=== PATIENT | female | born 1960 | race Caucasian/White ===

== ENCOUNTER 2018-08-22 17:21 | Observation (INO) | payer BC ==
[2018-08-22] MEDS ORDERED: Sodium Chloride 0.9% 1,000 ML IV SCH (18:00)
[2018-08-22 18:40] LABS: ANION GAP 11.6 mmol/L (5-15); CHLORIDE,CL 103 mmol/L (98-115); SODIUM,NA 137 mmol/L (136-145)
--- NOTE | 2018-08-22 18:44 | CR ---
[id number] RAD/RAD Chest PA And Lateral EXAM: RAD Chest PA And Lateral CLINICAL DATA: WHEEZING. COUGH. COMPARISON: NO PREVIOUS SIMILAR EXAM IS AVAILABLE. FINDINGS: The lungs are clear. The cardiomediastinal contour is normal. The regional bones and soft tissues are unremarkable. IMPRESSION: NO ACUTE PROCESS. Alvaro Stiles MD 08/22/18 2522 Thank you for allowing us to participate in the care of your patient.
[2018-08-22] MEDS: Ketorolac 30 MG/ML SDV IVPUSH PRN (19:53)
[2018-08-22] MEDS: methylPREDNISolone Sodium Succinate 125 MG/2 ML SDV IVPUSH SCH (20:00)
[2018-08-22] MEDS: Ondansetron 4 MG/2 ML SDV IVPUSH PRN (20:07)
[2018-08-22] MEDS: Sodium Chloride 0.9% 10 ML Syringe FLUSH PRN (20:08)
[2018-08-22] MEDS: Sodium Chloride 0.9% 1,000 ML IV SCH (20:20)
[2018-08-22] MEDS ORDERED: atorvaSTATin 10 MG Tab PO SCH (21:00)
[2018-08-22] MEDS: Acetaminophen 325 MG Tab PO PRN (21:07)
[2018-08-22] MEDS: Nicotine 21 MG/24 Hr Patch TRDERM SCH (21:08)
[2018-08-22] MEDS: Albuterol/Ipratropium 3.0-0.5 MG/3 ML Neb Soln NEB SCH (21:22)
[2018-08-23] MEDS: Aluminum Hydroxide/Magnesium Hydroxide/Simethicone Susp 30 ML Cup PO PRN ×2 (02:14→13:11)
[2018-08-23] MEDS: Sodium Chloride 0.9% 1,000 ML IV SCH ×2 (03:03→10:58)
[2018-08-23] MEDS: methylPREDNISolone Sodium Succinate 125 MG/2 ML SDV IVPUSH SCH (06:20)
[2018-08-23] MEDS: Sodium Chloride 0.9% 10 ML Syringe FLUSH PRN ×2 (06:21→08:18)
[2018-08-23] MEDS: Acetaminophen 325 MG Tab PO PRN (06:25)
[2018-08-23] MEDS: Albuterol/Ipratropium 3.0-0.5 MG/3 ML Neb Soln NEB SCH ×2 (06:40→13:04)
[2018-08-23] MEDS ORDERED: Levothyroxine 75 MCG Tab PO SCH (07:30)
[2018-08-23] MEDS ORDERED: Levothyroxine 100 MCG Tab PO SCH (07:30)
[2018-08-23] MEDS: Nicotine 21 MG/24 Hr Patch TRDERM SCH (08:07)
[2018-08-23] MEDS: Ondansetron 4 MG/2 ML SDV IVPUSH PRN (08:17)
[2018-08-23] MEDS: Ketorolac 30 MG/ML SDV IVPUSH PRN (08:17)
--- NOTE | 2018-08-23 10:58 | PCM.PN ---
- General Info Date of Service: 08/23/18 Functional Status: Reports: Pain Controlled, Tolerating Diet, Urinating. Denies : Ambulating, New Symptoms - Review of Systems General: Reports: Night Sweats HEENT: Reports: Headaches Pulmonary: Reports: Cough. Denies: Shortness of Breath, Pleuritic Chest Pain, Sputum, Wheezing Cardiovascular: Reports: No Symptoms Gastrointestinal: Reports: Decreased Appetite, Nausea. Denies: Vomiting Genitourinary: Reports: No Symptoms Musculoskeletal: Reports: No Symptoms Skin: Reports: Dryness Neurological: Denies: Confusion Psychiatric: Reports: No Symptoms - Patient Data Vitals - Most Recent: Last Vital Signs Temp 99.6 F 08/23/18 06:27 Pulse 80 08/23/18 06:40 Resp 20 08/23/18 06:27 BP 117/64 08/23/18 06:27 Pulse Ox 97 08/23/18 06:40 Weight - Most Recent: 191 lb 12.8 oz I&O - Last 24 Hours: Intake & Output 08/22/18 08/23/18 08/23/18 22:59 06:59 14:59 Intake Total 211 1797 Output Total 200 Balance 11 1797 Lab Results Last 24 Hours: Laboratory Results - last 24 hr 08/22/18 08/22/18 08/22/18 Range/Units 18:10 18:10 20:45 WBC 9.67 (5.00-10.00) 10^3/uL RBC 5.13 (3.80-5.50) 10^6/uL Hgb 15.1 (12.0-16.0) g/dL Hct 43.9 (37.0-47.0) % MCV 85.6 (82.0-92.0) fL MCH 29.4 (27.0-31.0) pg MCHC 34.4 (32.0-36.0) g/dL RDW 13.5 (11.5-14.5) % Plt Count 252 (150-400) 10^3/uL MPV 10.9 H (7.4-10.4) fL Immature Gran % (Auto) 0.2 (0.0-5.0) % Neut % (Auto) 83.7 H (50.0-70.0) % Lymph % (Auto) 11.5 L (20.0-40.0) % [place] % (Auto) 4.1 (2.0-8.0) % Eos % (Auto) 0.2 L (1.0-3.0) % Baso % (Auto) 0.3 (0.0-1.0) % Immature Gran # (Auto) 0.02 (0.00-0.50) 10^3/uL Neut # (Auto) 8.09 H (2.50-7.00) 10^3/uL Lymph # (Auto) 1.11 (1.00-4.00) 10^3/uL [place] # (Auto) 0.40 (0.10-0.80) 10^3/uL Eos # (Auto) 0.02 L (0.10-0.30) 10^3/uL Baso # (Auto) 0.03 (0.00-0.10) 10^3/uL Sodium 137 (136-145) mmol/L Potassium 3.7 (3.3-5.3) mmol/L Chloride 103 (98-115) mmol/L Carbon Dioxide 26.1 (21.0-32.0) mmol/L Anion Gap 11.6 (5-15) mmol/L BUN 17 (6-25) mg/dL Creatinine 0.80 (0.51-1.17) mg/dL Est Cr Clr Drug Dosing 78.27 mL/min Estimated GFR (MDRD) > 60 mL/min Glucose 115 H (75 - 99) mg/dL Calcium 9.1 (8.7-10.3) mg/dL Specimen Type Urinvoid Urine Color Yellow (YELLOW) Urine Appearance Slightly cloudy H (CLEAR) Urine pH 6.5 (5.0-9.0) Ur Specific [place] 1.025 (1.005-1.030) Urine Protein Negative (NEGATIVE) mg/dL Urine Glucose (UA) Negative (NEGATIVE) mg/dL Urine Ketones 15 H (NEGATIVE) mg/dL Urine Occult Blood Negative (NEGATIVE) Urine Nitrite Negative (NEGATIVE) Urine Bilirubin Negative (NEGATIVE) Urine Urobilinogen 0.2 (0.2-1.0) E.U./dL Ur Leukocyte Esterase Negative (NEGATIVE) Urine RBC 0-5 (0-5) /HPF Urine WBC 5-10 H (0-5) /HPF Ur Epithelial Cells Few /LPF Urine Bacteria Few (NONE TO FEW) /HPF Med Orders - Current: Current Medications Acetaminophen (Tylenol) 650 mg PO Q4H PRN PRN Reason: Headache Last Admin: 08/23/18 06:25 Dose: 650 mg Al Hydroxide/Mg Hydroxide (Mag-Al Plus) 30 ml PO Q4H PRN PRN Reason: Heartburn Last Admin: 08/23/18 02:14 Dose: 30 ml Albuterol/Ipratropium (Duoneb 3.0-0.5 Mg/3 Ml) 3 ml NEB Q8HRRT [facility] Last Admin: 08/23/18 06:40 Dose: 3 ml Atorvastatin Calcium (Lipitor) 10 mg PO BEDTIME [facility] Last Admin: 08/22/18 21:22 Dose: 10 mg Sodium Chloride (Normal Saline) 1,000 mls @ 150 mls/hr IV ASDIRECTED [facility] Last Admin: 08/23/18 03:03 Dose: 150 mls/hr Ketorolac Tromethamine (Toradol) 30 mg IVPUSH Q6H PRN PRN Reason: Headache Stop: 08/27/18 18:21 Last Admin: 08/23/18 08:17 Dose: 30 mg Levothyroxine Sodium (Synthroid) 100 mcg PO ACBREAKFAST [facility] Last Admin: 08/23/18 08:07 Dose: 100 mcg Levothyroxine Sodium (Levothyroxine) 75 mcg PO ACBREAKFAST [facility] Last Admin: 08/23/18 08:07 Dose: 75 mcg Methylprednisolone Sodium Succinate (Solu-Medrol) 40 mg IVPUSH Q12H [facility] Last Admin: 08/23/18 06:20 Dose: 40 mg Nicotine (Habitrol) 21 mg TRDERM DAILY [facility] Last Admin: 08/23/18 08:07 Dose: 21 mg Ondansetron HCl (Zofran) 8 mg IVPUSH Q8H PRN PRN Reason: Nausea/Vomiting Last Admin: 08/23/18 08:17 Dose: 8 mg Sodium Chloride (Saline Flush) 10 ml FLUSH Q8HR PRN PRN Reason: keep vein open Last Admin: 08/23/18 08:18 Dose: 10 ml Discontinued Medications Sodium Chloride (Normal Saline) 1,000 mls @ 100 mls/hr IV ASDIRECTED [facility] - Exam Quality Assessment: No: Supplemental Oxygen General: Alert, Oriented, Cooperative Neck: Supple, No JVD Lungs: Clear to Auscultation, Normal Respiratory Effort Cardiovascular: Regular Rate, Regular Rhythm GI/Abdominal Exam: Soft. No: Distended Back Exam: No: CVA Tenderness (L), CVA Tenderness (R) Extremities: No Pedal Edema Peripheral Pulses: 2+: Radial (R), Femoral (L) Neurological: Normal Speech, Sensation Intact, Cranial Nerves Intact Psy/Mental Status: Alert, Normal Affect, Normal Mood - Problem List Review Problem List Initiated/Reviewed/Updated: Yes - Plan Plan:: History summary Ms Avila, is a 58-year-old female that was admitted into OBS status by Abigail CORREA of the [facility]. She was seen August 22 when she had came into the clinic complaining of headaches vomiting and nauseous decrease appetite and overall poor intake or intermittent cough and congestion-like symptoms. that she had for about 3 days. 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 Denies fever or rash. She was admitted for IVs, anti-emetics. Provider Pinky Leblanc did notify pharmacist, Kandi Lopez and was informed that certain types of chemotherapy can remain active in the urinary output the type of chemotherapy agent will be looked into. Update today Review chest x-ray, no acute process Patient with headache, Primary hospital problems Dehydration, mild, becoming quickly euvolemic, Nausea and vomiting, improved, doubtful if chemotherapy related Headache, NSAIDs as tolerable, Tylenol Chronic problems Hypothyroidism, on thyroid replacement therapy, assess TSH HLD, patient removed herself from statin therapy due to suspected myalgias, will considered doses change/statin change as outpatient. Attending dependence, precontemplation phase, linked current health status to affect change. Nicotine patch Disposition overall plan, likely viral etiology doubtful if chemotherapy induced. Reduce IV fluids, seem to be improving, diet as tolerated, anti-emetics , decrease IV fluids. Do not anticipate long stay. Possible discharge tonight or in a.m.
[2018-08-23] MEDS ORDERED: Sodium Chloride 0.9% 1,000 ML IV SCH (11:45)
--- NOTE | 2018-08-24 09:58 | PCM.DCSUM1 ---
Discharge Summary - Hospital Course Diagnosis: Stroke: No - Discharge Data Discharge Date: 08/23/18 Discharge Disposition: Home, Self-Care 01 Condition: Good - Patient Instructions Diet: Usual Diet as Tolerated, Drink 8-10+ Glasses/Day Driving: May Drive Today Showering/Bathing: December Shower Notify Provider of: Fever, Increased Pain, Nausea and/or Vomiting - Discharge Plan *PRESCRIPTION DRUG MONITORING PROGRAM REVIEWED*: Not Applicable *COPY OF PRESCRIPTION DRUG MONITORING REPORT IN PATIENT LAYO: Not Applicable Forms: Return to Work/Inpatient OON Referrals: Mp Mon NP [Nurse Practitioner] - 08/26/18 10:40 am - Discharge Summary/Plan Comment DC Time >30 min.: No Discharge Summary/Plan Comment: Final diagnosis Dehydration, mild Nausea and vomiting, doubtful if chemotherapy related Headache, Viral gastroenteritis History summary 58-year-old patient was admitted by Abigail CORREA from one of the [facility] the patient started developing headaches vomiting GI-like symptoms after becoming in contact with chemotherapy from and urine bag. 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 She linked her symptoms to likely the cause. She had came in and was seen on August 22 when she had came into the clinic complaining of headaches vomiting and nauseous decrease appetite and overall poor intake or intermittent cough and congestion-like symptoms--she stated her symptoms were approximate 3 days in duration. He denied any fever or rash. Hospital course Hospital course was terse and quite uneventful, She was admitted for IVs, anti- emetics. Provider Pinky Leblanc did notify pharmacist, Kandi Lopez and was informed that certain types of chemotherapy can remain active in the urinary output the type of chemotherapy agent will be looked into. She was treated with IV fluids anti-emetics and diet as tolerated. She had a chest x-ray which showed no acute process. Temperature maximum was 100 however she was afebrile upon discharge. He was well-hydrated and urinating and quickly became euvolemic. She felt better quickly throughout the morning and afternoon and desired to be discharged. Going counseling was provided. Her white count was normal, she did have some mild elevation of neutrophilia 83%. Electrolytes were normal. Disposition Patient desired to be discharged, nurses and patient and patient's family felt she was ready to be discharged. She will follow up closely [facility] with myself prior to returning to work. She is to report any nausea vomiting or any other symptoms that are concerning. - General Info Date of Service: 08/23/18 Subjective Update: She does report improvement in physical condition, no more nausea or vomiting. Ready to be discharged Functional Status: Reports: Pain Controlled, Tolerating Diet - Review of Systems General: Denies: Fever Gastrointestinal: Reports: No Symptoms Genitourinary: Reports: No Symptoms - Patient Data Vitals - Most Recent: Last Vital Signs Temp 98 F 08/23/18 15:00 Pulse 60 08/23/18 15:00 Resp 18 08/23/18 15:00 BP 118/63 08/23/18 15:00 Pulse Ox 97 08/23/18 15:00 Weight - Most Recent: 191 lb 12.8 oz Lab Results - Last 24 hrs: Laboratory Results - last 24 hr 08/22/18 Range/Units 18:10 TSH, Ultra Sensitive 0.690 (0.340-4.820) uIU/mL Med Orders - Current: Current Medications Discontinued Medications Acetaminophen (Tylenol) 650 mg PO Q4H PRN PRN Reason: Headache Last Admin: 08/23/18 06:25 Dose: 650 mg Al Hydroxide/Mg Hydroxide (Mag-Al Plus) 30 ml PO Q4H PRN PRN Reason: Heartburn Last Admin: 08/23/18 13:11 Dose: 30 ml Albuterol/Ipratropium (Duoneb 3.0-0.5 Mg/3 Ml) 3 ml NEB Q8HRRT [facility] Last Admin: 08/23/18 13:04 Dose: 3 ml Atorvastatin Calcium (Lipitor) 10 mg PO BEDTIME [facility] Last Admin: 08/22/18 21:22 Dose: 10 mg Sodium Chloride (Normal Saline) 1,000 mls @ 100 mls/hr IV ASDIRECTED [facility] Sodium Chloride (Normal Saline) 1,000 mls @ 150 mls/hr IV ASDIRECTED [facility] Last Admin: 08/23/18 10:58 Dose: 100 mls/hr Sodium Chloride (Normal Saline) 1,000 mls @ 100 mls/hr IV ASDIRECTED [facility] Last Admin: 08/23/18 11:15 Dose: 100 mls/hr Ketorolac Tromethamine (Toradol) 30 mg IVPUSH Q6H PRN PRN Reason: Headache Stop: 08/27/18 18:21 Last Admin: 08/23/18 08:17 Dose: 30 mg Levothyroxine Sodium (Synthroid) 100 mcg PO ACBREAKFAST [facility] Last Admin: 08/23/18 08:07 Dose: 100 mcg Levothyroxine Sodium (Levothyroxine) 75 mcg PO ACBREAKFAST [facility] Last Admin: 08/23/18 08:07 Dose: 75 mcg Methylprednisolone Sodium Succinate (Solu-Medrol) 40 mg IVPUSH Q12H [facility] Last Admin: 08/23/18 06:20 Dose: 40 mg Nicotine (Habitrol) 21 mg TRDERM DAILY [facility] Last Admin: 08/23/18 08:07 Dose: 21 mg Ondansetron HCl (Zofran) 8 mg IVPUSH Q8H PRN PRN Reason: Nausea/Vomiting Last Admin: 08/23/18 08:17 Dose: 8 mg Sodium Chloride (Saline Flush) 10 ml FLUSH Q8HR PRN PRN Reason: keep vein open Last Admin: 08/23/18 08:18 Dose: 10 ml
== END 2018-08-23 17:30 | disposition home or self-care (01) ==
LOC: KA.MS 17:21
PROVIDERS: ADMIT Physician Assistant Medical; ATTEND Physician Assistant
DX: E86.0 Dehydration (principal); A08.4 Viral intestinal infection, unspecified; E78.00 Pure hypercholesterolemia, unspecified; E03.9 Hypothyroidism, unspecified; E78.5 Hyperlipidemia, unspecified; F17.210 Nicotine dependence, cigarettes, uncomplicated; Z88.5 Allergy status to narcotic agent; Z79.899 Other long term (current) drug therapy
CPT/HCPCS: 36415; 71046; 80048; 81001; 84443; 85025; 94640; A9270-GY; J1885; J2405; J2930; J7030; J7620-GY

== ENCOUNTER 2018-08-27 11:53 | Inpatient (IN) | payer BC ==
[2018-08-27] MEDS ORDERED: Sodium Chloride 0.9% 1,000 ML IV ONE ×2 (12:20→15:09)
[2018-08-27] MEDS ORDERED: Ondansetron 4 MG/2 ML SDV IVPUSH SCH (12:21)
[2018-08-27] MEDS ORDERED: Sodium Chloride 0.9% 10 ML Syringe FLUSH PRN (12:22)
[2018-08-27] MEDS ORDERED: Sodium Chloride 0.9% 50 ML IV ONE (13:07)
[2018-08-27] MEDS ORDERED: Iopamidol 755 Mg/ML 75 ML Bottle IVPUSH ONE (13:07)
[2018-08-27 13:34] LABS: ANION GAP 18.1 mmol/L (5-15); CHLORIDE,CL 98 mmol/L (98-115); SODIUM,NA 135 mmol/L (136-145)
--- NOTE | 2018-08-27 13:34 | CT ---
[id number] CT/CT Abdomen Pelvis W IV EXAM: CT Abdomen Pelvis W IV CLINICAL DATA: ABDOMINAL PAIN COMPARISON: NO PREVIOUS SIMILAR EXAM IS AVAILABLE. FINDINGS: There is uncomplicated moderate colonic diverticular disease. There is mild small bowel distention. The uterus and ovaries are not seen. The appendix is normal. The liver and spleen are unremarkable. The kidneys and adrenals show no abnormality. The aorta and pancreas are within normal limits. There is no bowel distention. There is no bowel wall thickening either. There is no free fluid or free air. There is no adenopathy. The pelvis shows no mass, free fluid, abscess, inflammatory change, or adenopathy. IMPRESSION: NONSPECIFIC MILD SMALL BOWEL DISTENTION. SURGICAL CHANGES. POSSIBILITY OF A PARTIAL SMALL BOWEL OBSTRUCTION SECONDARY TO ADHESIONS IS RAISED. UNCOMPLICATED MODERATE COLONIC DIVERTICULAR DISEASE. Alvaro Stiles MD 08/27/18 [id number] Thank you for allowing us to participate in the care of your patient.
[2018-08-27] MEDS ORDERED: Ondansetron 4 MG/2 ML SDV IVPUSH PRN (16:13)
[2018-08-27] MEDS: Pantoprazole 40 MG Vial IVPUSH SCH (18:37)
[2018-08-27] MEDS: Sodium Chloride 0.9% 1,000 ML IV SCH (23:57)
[2018-08-28] MEDS ORDERED: Levothyroxine 25 MCG Tab PO SCH (07:00)
[2018-08-28] MEDS: Sodium Chloride 0.9% 1,000 ML IV SCH ×2 (07:52→16:20)
[2018-08-28 07:56] LABS: ANION GAP 18.7 mmol/L (5-15); CHLORIDE,CL 102 mmol/L (98-115); SODIUM,NA 141 mmol/L (136-145)
[2018-08-28] MEDS: Pantoprazole 40 MG Vial IVPUSH SCH (08:59)
--- NOTE | 2018-08-28 10:38 | PCM.HP ---
H&P History of Present Illness - General Date of Service: 08/28/18 Admit Problem/Dx: Admission Diagnosis/Problem Admission Diagnosis/Problem Nausea and vomiting Source of Information: Patient, Old Records, Provider, RN History Limitations: Reports: No Limitations - History of Present Illness Initial Comments - Free Text/Narative: 58-year-old female was directly admitted from [facility] due to ongoing vomiting and nausea. She initially presented to the [facility] due to posthospitalization follow-up due to similar symptoms suggestive of viral gastroenteritis, dehydration and nausea and vomiting with headaches. 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 She was admitted by MADELINE Chen, from one of the [facility] Her hospitalization overall was uneventful. Her WBC count was normal, although there was mild neutrophilia 83%. Electrolytes were normal. She did have a chest x-ray done which showed no acute process. The patient did demand to be discharge that evening and felt much better. She was evaluated in the [facility] of the day of admission she reported ongoing issues with nausea and vomiting along with 5 pound weight loss, unable to keep any fluids or food down. She states that she is unable to keep food or fluid down and has had limited intake. She was sent over for initial IV hydration and further imaging. Her last bowel movement was 3 days prior to admission, but she reports it was very small. Denies any fever or chills. Headache Pain Score (Numeric/FACES): 4 - Related Data Allergies/Adverse Reactions: Allergies Allergy/AdvReac Type Severity Reaction Status Date / Time codeine Allergy Nausea and Verified 08/27/18 13:32 Vomiting Home Medications: Home Meds Levothyroxine 175 mcg PO ACBRK 08/27/18 [History] Past Medical History HEENT History: Reports: Impaired Vision Cardiovascular History: Reports: High Cholesterol Gastrointestinal History: Reports: Diverticulosis, Other (See Below) Other Gastrointestinal History: Indigestion Genitourinary History: Reports: None [employer] History: Reports: Endometriosis, Musculoskeletal History: Reports: Arthritis Endocrine/Metabolic History: Reports: Hypothyroidism - Past Surgical History HEENT Surgical History: Reports: None Cardiovascular Surgical History: Reports: None Respiratory Surgical History: Reports: None Female Surgical History: Reports: Section, Hysterectomy Social & Family History - Family History HEENT: Reports: None Cardiac: Reports: Hypertension, Other (See Below) (Father with heart disease hypertension, son with hypertension Maternal grandmother with stroke) Respiratory: Reports: None GI: Reports: None : Reports: None OBGYN: Reports: None Musculoskeletal: Reports: None Neurological: Reports: None Psychiatric: Reports: Other (See Below) (Mother with Alzheimer's and dementia,) Endocrine/Metabolic: Reports: Hypothyroidism (Mother, paternal grandmother, sisters, and daughter with hypothyroidism) Hematologic: Reports: None Immunologic: Reports: None Dermatologic: Reports: None Oncologic: Reports: None - Tobacco Use Smoking Status *Q: Former Smoker Used Tobacco, but Quit: Yes Month/Year Tobacco Last Used: 08/2018 Second Hand Smoke Exposure: Yes - Caffeine Use Caffeine Use: Reports: Coffee, Soda - Recreational Drug Use Recreational Drug Use: No H&P Review of Systems - Review of Systems: Review Of Systems: See Below General: Reports: Decreased Appetite. Denies: Night Sweats HEENT: Reports: No Symptoms Pulmonary: Reports: No Symptoms Cardiovascular: Reports: No Symptoms Gastrointestinal: Reports: Decreased Appetite, Other (Had 1 small soft formed stool this morning). Denies: Abdominal Pain, Constipation, Diarrhea, Nausea, Vomiting Genitourinary: Reports: No Symptoms Musculoskeletal: Reports: No Symptoms Skin: Reports: Dryness. Denies: Rash Psychiatric: Reports: Cravings (Tobacco cravings--refusing transdermal ). Denies: Anxiety Neurological: Denies: Confusion, Dizziness Hematologic/Lymphatic: Reports: No Symptoms Immunologic: Reports: No Symptoms Exam - Exam Exam: See Below - Vital Signs Vital Signs: Last Vital Signs Temp 98.2 F 08/28/18 06:07 Pulse 53 L 08/28/18 06:07 Resp 14 08/28/18 06:07 BP 117/66 08/28/18 06:07 Pulse Ox 93 L 08/28/18 06:35 Weight: 188 lb 12.8 oz - Exam Quality Assessment: No: Supplemental Oxygen General: Alert, Oriented, Cooperative. No: Mild Distress HEENT: No: Mucosa Moist & [place] Neck: No: JVD Lungs: Clear to Auscultation, Normal Respiratory Effort Cardiovascular: Regular Rate, Regular Rhythm GI/Abdominal Exam: Soft, No Distention, Other (Bowel tones hypoactive, slightly active right quadrants upper and lower ). No: Distended, Guarding, Rigid, Rebound, Tender (Female) Exam: Deferred Rectal (Female) Exam: Deferred Back Exam: No: CVA Tenderness (L), CVA Tenderness (R) Extremities: No Pedal Edema Peripheral Pulses: 2+: Radial (L), Radial (R) Skin: Dry. No: Rash Neurological: Normal Speech Neuro Extensive - Mental Status: Alert, Oriented x3 Psychiatric: Alert, Normal Affect - Patient Data Lab Results Last 24 hrs: Laboratory Results - last 24 hr 08/27/18 08/27/18 08/28/18 Range/Units 13:00 13:00 07:26 WBC 8.60 6.17 (5.00-10.00) 10^3/uL RBC 5.37 4.60 (3.80-5.50) 10^6/uL Hgb 15.8 13.6 D (12.0-16.0) g/dL Hct 44.8 39.1 (37.0-47.0) % MCV 83.4 85.0 (82.0-92.0) fL MCH 29.4 29.6 (27.0-31.0) pg MCHC 35.3 34.8 (32.0-36.0) g/dL RDW 13.3 13.5 (11.5-14.5) % Plt Count 231 181 (150-400) 10^3/uL MPV 11.1 H 10.7 H (7.4-10.4) fL Immature Gran % (Auto) 0.3 (0.0-5.0) % Neut % (Auto) 66.0 (50.0-70.0) % Lymph % (Auto) 23.7 (20.0-40.0) % [place] % (Auto) 7.9 (2.0-8.0) % Eos % (Auto) 1.6 (1.0-3.0) % Baso % (Auto) 0.5 (0.0-1.0) % Immature Gran # (Auto) 0.02 (0.00-0.50) 10^3/uL Neut # (Auto) 4.07 (2.50-7.00) 10^3/uL Lymph # (Auto) 1.46 (1.00-4.00) 10^3/uL [place] # (Auto) 0.49 (0.10-0.80) 10^3/uL Eos # (Auto) 0.10 (0.10-0.30) 10^3/uL Baso # (Auto) 0.03 (0.00-0.10) 10^3/uL Sodium 135 L (136-145) mmol/L Potassium 3.7 (3.3-5.3) mmol/L Chloride 98 (98-115) mmol/L Carbon Dioxide 22.6 (21.0-32.0) mmol/L Anion Gap 18.1 H (5-15) mmol/L BUN 18 (6-25) mg/dL Creatinine 0.78 (0.51-1.17) mg/dL Est Cr Clr Drug Dosing TNP Estimated GFR (MDRD) > 60 mL/min Glucose 104 H (75 - 99) mg/dL Calcium 9.0 (8.7-10.3) mg/dL Total Bilirubin 1.4 H (0.2-1.0) mg/dL AST 13 L (15-37) U/L ALT 27 (12-78) U/L Alkaline Phosphatase 111 (46-116) IU/L Total Protein 7.2 (6.4-8.2) g/dL Albumin 3.73 (3.00-4.80) g/dL Lipase 72 L (73-393) U/L 08/28/18 Range/Units 07:26 WBC (5.00-10.00) 10^3/uL RBC (3.80-5.50) 10^6/uL Hgb (12.0-16.0) g/dL Hct (37.0-47.0) % MCV (82.0-92.0) fL MCH (27.0-31.0) pg MCHC (32.0-36.0) g/dL RDW (11.5-14.5) % Plt Count (150-400) 10^3/uL MPV (7.4-10.4) fL Immature Gran % (Auto) (0.0-5.0) % Neut % (Auto) (50.0-70.0) % Lymph % (Auto) (20.0-40.0) % [place] % (Auto) (2.0-8.0) % Eos % (Auto) (1.0-3.0) % Baso % (Auto) (0.0-1.0) % Immature Gran # (Auto) (0.00-0.50) 10^3/uL Neut # (Auto) (2.50-7.00) 10^3/uL Lymph # (Auto) (1.00-4.00) 10^3/uL [place] # (Auto) (0.10-0.80) 10^3/uL Eos # (Auto) (0.10-0.30) 10^3/uL Baso # (Auto) (0.00-0.10) 10^3/uL Sodium 141 (136-145) mmol/L Potassium 3.8 (3.3-5.3) mmol/L Chloride 102 (98-115) mmol/L Carbon Dioxide 24.1 (21.0-32.0) mmol/L Anion Gap 18.7 H (5-15) mmol/L BUN 17 (6-25) mg/dL Creatinine 0.83 (0.51-1.17) mg/dL Est Cr Clr Drug Dosing 75.44 Estimated GFR (MDRD) > 60 mL/min Glucose 81 (75 - 99) mg/dL Calcium 8.1 L (8.7-10.3) mg/dL Total Bilirubin 1.1 H (0.2-1.0) mg/dL AST 15 (15-37) U/L ALT 25 (12-78) U/L Alkaline Phosphatase 87 (46-116) IU/L Total Protein 5.9 L (6.4-8.2) g/dL Albumin 3.05 (3.00-4.80) g/dL Lipase (73-393) U/L Result Diagrams: 08/28/18 07:26 08/28/18 07:26 Problem List Initiated/Reviewed/Updated: Yes Orders Last 24hrs: Active Orders 24 hr Category Date Time Status Communication Order [RC] [id number],1700,0100 Care 08/27/18 16:15 Active Oxygen Therapy [] DAILY Care 08/27/18 16:16 Active Up ad Jennifer [] DAILY Care 08/27/18 16:14 Active Nothing Per Oral Diet [DIET] Diet 08/27/18 Dinner Active Levothyroxine Med 08/29/18 07:30 Active 75 mcg PO ACBREAKFAST Levothyroxine [Synthroid] Med 08/29/18 07:30 Active 100 mcg PO ACBREAKFAST Ondansetron [Zofran] Med 08/27/18 16:13 Active 4 mg IVPUSH Q4H PRN Pantoprazole [ProTONIX IV] Med 08/27/18 18:15 Active 40 mg IVPUSH DAILY Sodium Chloride 0.9% [Normal Saline] 1,000 ml Med 08/27/18 16:30 Active IV ASDIRECTED Sodium Chloride 0.9% [Saline Flush] Med 08/27/18 12:22 Active 10 ml FLUSH Q8HR PRN Saline Lock Insert [OM.PC] Routine Oth 08/27/18 12:22 Ordered Code Status [Resuscitation Status] Routine Resus Stat 08/27/18 19:38 Ordered Medication Orders Sodium Chloride (Normal Saline) 1,000 mls @ 125 mls/hr IV ASDIRECTED LIANNE Last Admin: 08/28/18 07:52 Dose: 125 mls/hr Infusion: 08/28/18 07:52 Dose: 125 mls/hr Admin: 08/27/18 23:57 Dose: 125 mls/hr Levothyroxine Sodium (Synthroid) 100 mcg PO ACBREAKFAST LIANNE Levothyroxine Sodium (Levothyroxine) 75 mcg PO ACBREAKFAST [facility] Ondansetron HCl (Zofran) 4 mg IVPUSH Q4H PRN PRN Reason: Nausea/Vomiting Last Admin: 08/27/18 16:41 Dose: 4 mg Pantoprazole Sodium (Protonix Iv) 40 mg IVPUSH DAILY [facility] Last Admin: 08/28/18 08:59 Dose: 40 mg Admin: 08/27/18 18:37 Dose: 40 mg Sodium Chloride (Saline Flush) 10 ml FLUSH Q8HR PRN PRN Reason: keep vein open Assessment/Plan Comment:: History of present illness 58-year-old female was directly admitted from [facility] due to ongoing vomiting and nausea. She initially presented to the [facility] due to posthospitalization follow-up due to similar symptoms suggestive of viral gastroenteritis, dehydration and nausea and vomiting with headaches. 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 She was admitted by MADELINE Chen, from one of the [facility] Her hospitalization overall was uneventful. Her WBC count was normal, although there was mild neutrophilia 83%. Electrolytes were normal. She did have a chest x-ray done which showed no acute process. The patient did demand to be discharge that evening and felt much better. She was evaluated in the [facility] of the day of admission she reported ongoing issues with nausea and vomiting along with 5 pound weight loss, unable to keep any fluids or food down. She states that she is unable to keep food or fluid down and has had limited intake. She was sent over for initial IV hydration and further imaging. Her last bowel movement was 3 days prior to admission, but she reports it was very small. Denies any fever or chills. Pertinent findings Abdominal CT, nonspecific small bowel distention with a possibility of a partial small bowel obstruction likely secondary to adhesions are concerned. Uncomplicated moderate colonic diverticular disease. No free fluid or air, no adenopathy no mass or inflammation Primary hospital problems --Partial small bowel obstruction, seems to be quickly resolving as she did have soft formed bowel movement this morning. Will ambulate today. There are no signs/symptoms of complicating GI pathology, no rigidity, abdomen is soft, no fever, will attempt clear liquids today and advance diet only as tolerated. Monitor intake and output. Continue with IV fluids until adequate oral intake is measured. Signs of peritonitis, rigidity or surgical concerns at this time. Likely self-limiting. Will monitor inflammatory markers vital signs --History of adhesions, contributory Chronic and stable problems Nicotine dependence, quit 1 week ago, ongoing counseling provided, relational interviewing. Offered Eber, patient determination phase Hypothyroidism, on thyroid replacement therapy History of total hysterectomy due to endometriosis.
[2018-08-28] MEDS: Metoclopramide 10 MG/2 ML SDV IVPUSH SCH ×2 (11:50→18:35)
[2018-08-29] MEDS: Sodium Chloride 0.9% 1,000 ML IV SCH ×2 (00:24→08:31)
[2018-08-29] MEDS: Metoclopramide 10 MG/2 ML SDV IVPUSH SCH ×3 (03:06→18:29)
[2018-08-29] MEDS: Levothyroxine 75 MCG Tab PO SCH (07:40)
[2018-08-29] MEDS: Levothyroxine 100 MCG Tab PO SCH (07:40)
[2018-08-29] MEDS: Pantoprazole 40 MG Vial IVPUSH SCH (08:31)
--- NOTE | 2018-08-29 09:25 | PCM.PN ---
- General Info Date of Service: 08/29/18 Functional Status: Reports: Pain Controlled, Tolerating Diet, Ambulating. Denies: New Symptoms - Review of Systems General: Reports: Appetite. Denies: Fever, Fatigue, Malaise, Chills HEENT: Reports: No Symptoms Pulmonary: Reports: No Symptoms Cardiovascular: Reports: No Symptoms Gastrointestinal: Reports: Other (Small soft formed stool). Denies: Abdominal Pain, Diarrhea, Melena, Nausea, Vomiting ( this morning) Genitourinary: Reports: No Symptoms Musculoskeletal: Reports: No Symptoms Skin: Reports: Dryness Neurological: Denies: Dizziness Psychiatric: Denies: Cravings (Quit smoking 8 days ago so far doing very well, no cravings or behavioral problems) - Patient Data Vitals - Most Recent: Last Vital Signs Temp 97.6 F 08/29/18 06:52 Pulse 57 L 08/29/18 06:52 Resp 18 08/29/18 06:52 BP 117/64 08/29/18 06:52 Pulse Ox 98 08/29/18 08:47 Weight - Most Recent: 188 lb 12.8 oz I&O - Last 24 Hours: Intake & Output 08/28/18 08/29/18 08/29/18 22:59 06:59 14:59 Intake Total 1361 1210 Balance 1361 1210 Med Orders - Current: Current Medications Sodium Chloride (Normal Saline) 1,000 mls @ 125 mls/hr IV ASDIRECTED [facility] Last Admin: 08/29/18 08:31 Dose: 125 mls/hr Levothyroxine Sodium (Synthroid) 100 mcg PO ACBREAKFAST [facility] Last Admin: 08/29/18 07:40 Dose: 100 mcg Levothyroxine Sodium (Levothyroxine) 75 mcg PO ACBREAKFAST [facility] Last Admin: 08/29/18 07:40 Dose: 75 mcg Metoclopramide HCl (Reglan) 5 mg IVPUSH Q8H [facility] Stop: 08/29/18 23:59 Last Admin: 08/29/18 03:06 Dose: 5 mg Ondansetron HCl (Zofran) 4 mg IVPUSH Q4H PRN PRN Reason: Nausea/Vomiting Last Admin: 08/27/18 16:41 Dose: 4 mg Pantoprazole Sodium (Protonix Iv) 40 mg IVPUSH DAILY [facility] Last Admin: 08/29/18 08:31 Dose: 40 mg Sodium Chloride (Saline Flush) 10 ml FLUSH Q8HR PRN PRN Reason: keep vein open Discontinued Medications Sodium Chloride (Normal Saline) 1,000 mls @ 999 mls/hr IV .BOLUS ONE Stop: 08/27/18 13:20 Last Admin: 08/27/18 12:55 Dose: 999 mls/hr Sodium Chloride (Normal Saline) 50 mls @ 3 mls/sec IV ASDIRECTED ONE Stop: 08/27/18 13:08 Last Admin: 08/27/18 13:46 Dose: 3 mls/sec Sodium Chloride (Normal Saline) 1,000 mls @ 100 mls/hr IV ASDIRECTED ONE Stop: 08/28/18 01:08 Last Admin: 08/27/18 15:39 Dose: 100 mls/hr Iopamidol (Isovue-370 (76%)) 75 ml IVPUSH ONETIME ONE Stop: 08/27/18 13:08 Last Admin: 08/27/18 13:46 Dose: 75 ml Levothyroxine Sodium (Levothyroxine) 175 mcg PO ACBRK [facility] Last Admin: 08/28/18 06:16 Dose: 175 mcg Ondansetron HCl (Zofran) 4 mg IVPUSH ONETIME [facility] Last Admin: 08/27/18 12:59 Dose: 4 mg - Exam Quality Assessment: No: Supplemental Oxygen General: Alert, Oriented Lungs: Wheezing (Slight late expiratory wheeze right middle field, not clearing on cough) Cardiovascular: Regular Rate, Regular Rhythm GI/Abdominal Exam: Soft, Non-Tender, Other (Some bowel tones however slightly hypoactive right side). No: Distended, Guarding, Rigid, Rebound (Female) Exam: Deferred Extremities: No Pedal Edema Peripheral Pulses: 2+: Radial (L), Radial (R) Skin: Warm, Dry, Intact Neurological: No New Focal Deficit Psy/Mental Status: Alert, Normal Affect, Normal Mood - Problem List Review Problem List Initiated/Reviewed/Updated: Yes - My Orders Last 24 Hours: My Active Orders 08/28/18 11:08 SCD [Sequential Compression Device] [OM.PC] Routine 08/28/18 11:15 Metoclopramide [Reglan] 5 mg IVPUSH Q8H 08/29/18 07:30 Levothyroxine 75 mcg PO ACBREAKFAST Levothyroxine [Synthroid] 100 mcg PO ACBREAKFAST 08/29/18 08:45 BASIC METABOLIC PANEL,BMP [CHEM] Routine - Plan Plan:: History of present illness 58-year-old female was directly admitted from [facility] due to ongoing vomiting and nausea. She initially presented to the [facility] due to posthospitalization follow-up due to similar symptoms suggestive of viral gastroenteritis, dehydration and nausea and vomiting with headaches. 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 She was admitted by MADELINE Chen, from one of the [facility] Her hospitalization overall was uneventful. Her WBC count was normal, although there was mild neutrophilia 83%. Electrolytes were normal. She did have a chest x-ray done which showed no acute process. The patient did demand to be discharge that evening and felt much better. She was evaluated in the [facility] of the day of admission she reported ongoing issues with nausea and vomiting along with 5 pound weight loss, unable to keep any fluids or food down. She states that she is unable to keep food or fluid down and has had limited intake. She was sent over for initial IV hydration and further imaging. Her last bowel movement was 3 days prior to admission, but she reports it was very small. Denies any fever or chills. Pertinent findings Abdominal CT, nonspecific small bowel distention with a possibility of a partial small bowel obstruction likely secondary to adhesions are concerned. Uncomplicated moderate colonic diverticular disease. No free fluid or air, no adenopathy no mass or inflammation Primary hospital problems --Partial small bowel obstruction, resolving as she did have another soft formed bowel movement this morning. Continue ambulation aggressive today. Daily lock IV fluids after current fluids are running in. Tolerating diet well. There are no signs/symptoms of complicating GI pathology, no rigidity, abdomen is soft , no fever, she has tolerated an advanced diet. Continue soft diet today. Monitor for signs of peritonitis, rigidity or surgical concerns--however clinically responding to treatment. Feels good. Progressing well. Likely self- limiting. Will monitor inflammatory markers vital signs --History of adhesions, contributory --Hypocalcemia, pseudo- Chronic and stable problems Nicotine dependence, quit 1 week ago, ongoing counseling provided, motivational interviewing. Offered Chantix, patient determination phase of quitting. Hypothyroidism, on thyroid replacement therapy History of total hysterectomy due to endometriosis. Disposition/overall plan, continue inpatient, saline lock IV fluids today, ambulation in halls, anticipate discharge tomorrow.
[2018-08-29 09:58] LABS: ANION GAP 17.7 mmol/L (5-15); CHLORIDE,CL 102 mmol/L (98-115); SODIUM,NA 139 mmol/L (136-145)
[2018-08-30] MEDS: Levothyroxine 75 MCG Tab PO SCH (06:39)
[2018-08-30] MEDS: Levothyroxine 100 MCG Tab PO SCH (06:39)
[2018-08-30] MEDS: Pantoprazole 40 MG Vial IVPUSH SCH (08:23)
--- NOTE | 2018-08-30 09:17 | PCM.DCSUM1 ---
Discharge Summary - Hospital Course Diagnosis: Stroke: No - Discharge Data Discharge Date: 08/30/18 Discharge Disposition: Home, Self-Care 01 Condition: Good - Patient Instructions Diet: Drink 8-10+ Glasses/Day Activity, Other: As much as tolerated encourage walking Driving: May Drive Today Showering/Bathing: May Shower Notify Provider of: Fever, Increased Pain, Nausea and/or Vomiting Other/Special Instructions: Important to report any fever, abdominal distention or signs of obstruction, such as abdominal distention, vomiting, nausea, no bowel movements or not passing gas. You can take 1 scoop a Metamucil daily. Ask your pharmacist for [id number] product of Metamucil. I also gave you some medications for nauseous - Discharge Plan *PRESCRIPTION DRUG MONITORING PROGRAM REVIEWED*: Not Applicable *COPY OF PRESCRIPTION DRUG MONITORING REPORT IN PATIENT LAYO: Not Applicable Prescriptions/Med Rec: Ondansetron [Zofran] 4 mg PO Q8H #20 tab Home Medications: Home Meds Levothyroxine 175 mcg PO ACBRK 08/27/18 [History] Ondansetron [Zofran] 4 mg PO Q8H #20 tab 08/30/18 [Rx] Referrals: [facility] [Nurse Practitioner] - 09/02/18 3:00 pm - Discharge Summary/Plan Comment DC Time >30 min.: Yes Discharge Summary/Plan Comment: Final diagnosis Small bowel obstruction, partial, resolved Reticulosis, uncomplicated, History summary Abigail is a 58-year-old female was admitted to [facility] due to ongoing nauseous and vomiting. It was determined she had a small bowel obstruction partial. She had recently been released under her own accord and refused to stay in the hospital however she did not fair well at home and returned with ongoing nauseous and vomiting. [facility] to posthospitalization follow-up due to similar symptoms suggestive of viral gastroenteritis, dehydration and nausea and vomiting with headaches. 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 She was admitted by MADELINE Chen, from one of the [facility] Her hospitalization overall was uneventful. Her WBC count was normal, although there was mild neutrophilia 83%. Electrolytes were normal. She did have a chest x-ray done which showed no acute process. The patient did demand to be discharge that evening and felt much better. He does have history of adhesions history of total hysterectomy due to endometriosis. Pertinent findings Abdominal CT, nonspecific small bowel distention with a possibility of a partial small bowel obstruction likely secondary to adhesions are concerned. Uncomplicated moderate colonic diverticular disease. No free fluid or air, no adenopathy no mass or inflammation Hospital course She did very well throughout her second hospital stay. No nasogastric tube was required. She had bowel rest IV fluids and then was able to tolerate an advanced diet. Ongoing ambulation anti-emetics along with prokinetics eventually started having stools, felt much better without nausea vomiting. She was monitored closely for any signs of peritonitis, rigidity or surgical concerns--however clinically responding to treatment. [place] 100% improved by morning of discharge. Her electrolytes were monitored carefully and within normal limits. No elevated white count, no neutrophilia. Medication changes/adjustments upon discharge The counter Metamucil, newly added Zofran 4 mg by mouth every 8 hours when necessary for nausea, newly added He can continue on all her other home medications. Disposition/overall plan, will be discharged from the hospital, follow-up with [facility]. Will discuss return to work at that time. Ongoing nicotine cessation encouragement. - General Info Functional Status: Reports: Pain Controlled, Tolerating Diet, Ambulating, Urinating. Denies: New Symptoms - Review of Systems General: Denies: Fever Pulmonary: Reports: No Symptoms Cardiovascular: Reports: No Symptoms Gastrointestinal: Reports: Flatus. Denies: Abdominal Pain, Constipation, Decreased Appetite, Diarrhea, Difficulty Swallowing, Melena, Nausea, Vomiting Genitourinary: Reports: No Symptoms - Patient Data Vitals - Most Recent: Last Vital Signs Temp 97.7 F 08/30/18 07:00 Pulse 63 08/30/18 07:00 Resp 20 08/30/18 07:00 BP 150/73 H 08/30/18 07:00 Pulse Ox 95 08/30/18 07:00 Weight - Most Recent: 192 lb 3 oz I&O - Last 24 hours: Intake & Output 08/29/18 08/30/18 08/30/18 22:59 06:59 14:59 Intake Total 800 100 Balance 800 100 Lab Results - Last 24 hrs: Laboratory Results - last 24 hr 08/29/18 Range/Units 09:20 Sodium 139 (136-145) mmol/L Potassium 3.6 (3.3-5.3) mmol/L Chloride 102 (98-115) mmol/L Carbon Dioxide 22.9 (21.0-32.0) mmol/L Anion Gap 17.7 H (5-15) mmol/L BUN 10 (6-25) mg/dL Creatinine 0.84 (0.51-1.17) mg/dL Est Cr Clr Drug Dosing 74.54 mL/min Estimated GFR (MDRD) > 60 mL/min Glucose 122 H (75 - 99) mg/dL Calcium 8.4 L (8.7-10.3) mg/dL Med Orders - Current: Current Medications Sodium Chloride (Normal Saline) 1,000 mls @ 125 mls/hr IV ASDIRECTED [facility] Last Admin: 08/29/18 08:31 Dose: 125 mls/hr Levothyroxine Sodium (Synthroid) 100 mcg PO ACBREAKFAST [facility] Last Admin: 08/30/18 06:39 Dose: 100 mcg Levothyroxine Sodium (Levothyroxine) 75 mcg PO ACBREAKFAST [facility] Last Admin: 08/30/18 06:39 Dose: 75 mcg Ondansetron HCl (Zofran) 4 mg IVPUSH Q4H PRN PRN Reason: Nausea/Vomiting Last Admin: 08/27/18 16:41 Dose: 4 mg Pantoprazole Sodium (Protonix Iv) 40 mg IVPUSH DAILY [facility] Last Admin: 08/30/18 08:23 Dose: 40 mg Sodium Chloride (Saline Flush) 10 ml FLUSH Q8HR PRN PRN Reason: keep vein open Last Admin: 08/30/18 08:24 Dose: 10 ml Discontinued Medications Sodium Chloride (Normal Saline) 1,000 mls @ 999 mls/hr IV .BOLUS ONE Stop: 08/27/18 13:20 Last Admin: 08/27/18 12:55 Dose: 999 mls/hr Sodium Chloride (Normal Saline) 50 mls @ 3 mls/sec IV ASDIRECTED ONE Stop: 08/27/18 13:08 Last Admin: 08/27/18 13:46 Dose: 3 mls/sec Sodium Chloride (Normal Saline) 1,000 mls @ 100 mls/hr IV ASDIRECTED ONE Stop: 08/28/18 01:08 Last Admin: 08/27/18 15:39 Dose: 100 mls/hr Iopamidol (Isovue-370 (76%)) 75 ml IVPUSH ONETIME ONE Stop: 08/27/18 13:08 Last Admin: 08/27/18 13:46 Dose: 75 ml Levothyroxine Sodium (Levothyroxine) 175 mcg PO ACBRK [facility] Last Admin: 08/28/18 06:16 Dose: 175 mcg Metoclopramide HCl (Reglan) 5 mg IVPUSH Q8H [facility] Stop: 08/29/18 23:59 Last Admin: 08/29/18 18:29 Dose: 5 mg Ondansetron HCl (Zofran) 4 mg IVPUSH ONETIME [facility] Last Admin: 08/27/18 12:59 Dose: 4 mg - Exam Quality Assessment: Denies: Supplemental Oxygen General: Reports: Alert, Oriented Neck: Reports: Supple Lungs: Reports: Clear to Auscultation, Normal Respiratory Effort Cardiovascular: Reports: Regular Rate, Regular Rhythm GI/Abdominal Exam: Normal Bowel Sounds, Soft, No Distention, No Mass. No: Distended, Guarding, Rigid, Rebound, Tender
== END 2018-08-30 09:53 | disposition home or self-care (01) | DRG 247 ==
LOC: KA.IVTHER 11:53 → KA.MS 15:30
PROVIDERS: ADMIT Family Medicine; ATTEND Family Medicine
DX: K56.51 Intestinal adhesions [bands], with partial obstruction (principal); H54.7 Unspecified visual loss; E78.00 Pure hypercholesterolemia, unspecified; K57.90 Diverticulosis of intestine, part unspecified, without perforation or abscess without bleeding; M19.90 Unspecified osteoarthritis, unspecified site; E03.9 Hypothyroidism, unspecified; F17.200 Nicotine dependence, unspecified, uncomplicated; E86.0 Dehydration; Z90.710 Acquired absence of both cervix and uterus; Z79.899 Other long term (current) drug therapy; Z88.6 Allergy status to analgesic agent
CPT/HCPCS: 36415; 74177; 80048; 80053; 83690; 85025; 85027; A9270-GY; C9113; J2405; J2765; J7030; J7050; Q9967

== ENCOUNTER 2022-09-07 11:44 | Emergency (ER) | payer BC ==
[2022-09-07] MEDS: Sodium Chloride 0.9% 10 ML Syringe FLUSH PRN ×3 (11:45→12:51)
[2022-09-07] MEDS ORDERED: Sodium Chloride 0.9% 1,000 ML IV ONE ×2 (11:47→13:38)
[2022-09-07] MEDS ORDERED: Ondansetron 4 MG/2 ML SDV IVPUSH ONE (12:05)
[2022-09-07 12:22] LABS: ANION GAP 16.9 mmol/L (5-15); CHLORIDE,CL 101 mmol/L (98-107); SODIUM,NA 139 mmol/L (136-145)
[2022-09-07 12:27] LABS: ESTIMATED GFR 91 mL/min (>=60)
[2022-09-07] MEDS ORDERED: Ketorolac 30 MG/ML SDV IVPUSH ONE (12:41)
[2022-09-07 12:48] LABS: RESPIRATORY SYNCYTIAL VIR NAA NEGATIVE (NEGATIVE)
[2022-09-07 12:52] LABS: CORONAVIRUS COVID-19 NAA POSITIVE (NEGATIVE)
[2022-09-07] MEDS ORDERED: Calcium Carbonate 500 MG Tab.Chew PO ONE (14:06)
== END 2022-09-07 15:50 | disposition home or self-care (01) ==
LOC: KA.ED 11:44
DX: U07.1 COVID-19 (principal); E87.6 Hypokalemia; E03.9 Hypothyroidism, unspecified; Z88.5 Allergy status to narcotic agent; Z87.891 Personal history of nicotine dependence; Z79.899 Other long term (current) drug therapy
CPT/HCPCS: 0241U; 71045; 80053; 81001; 85025; 87324; 87449; 96361; 96374; 96375; 99284; A9270; J1885; J2405; J3490; J7030; 93010